=== PATIENT | female | born 1950 | race Caucasian/White ===

== ENCOUNTER 2021-08-06 17:30 | Inpatient (IN) | payer MEDICARE, BC ==
[~2021-08-06] VITALS: Ht 162.6 cm; Wt 79.9 kg
[2021-08-06] MEDS ORDERED: ALBUTEROL SULFATE 2.5 MG/3 ML NEBU NEB ONE (18:00)
[2021-08-06] MEDS ORDERED: methylPREDNISolone SOD SUCC 125 MG/2 ML VIAL IV ONE (18:00)
[2021-08-06] MEDS ORDERED: IPRATROPIUM BROMIDE 0.5 MG/2.5 ML NEBU NEB ONE (18:00)
--- NOTE | 2021-08-06 18:02 | NUR ---
Pt.was seen by pt.was updated with condition and plan of care.
[2021-08-06] MEDS ORDERED: methylPREDNISolone SOD SUCC 125 MG/2 ML VIAL ONE (18:29)
[2021-08-06 18:30] LABS: HEMATOCRIT 40.5 % (31.2-41.9); MEAN CORPUSCULAR HEMOGLOBIN 30.8 uug (24.7-32.8); MEAN CORPUSCULAR VOLUME 91.9 fL (75.5-95.3); PLATELET COUNT (AUTO) 190 K/uL (179-408)
[2021-08-06 18:37] LABS: CARBON DIOXIDE 29 mmol/L (21-32); CHLORIDE 102 mmol/L (98-107); GLUCOSE 116 mg/dL (74-106); POTASSIUM 3.7 mmol/L (3.5-5.1); UREA NITROGEN, BLOOD 19 mg/dL (7-18)
[2021-08-06 18:50] LABS: ALANINE AMINOTRANSFERASE 28 U/L (14-59); ALKALINE PHOSPHATASE 47 U/L (50-136); ASPARTATE AMINOTRANSFERASE 49 U/L (15-37); BILIRUBIN,DIRECT 0.1 mg/dL (0.0-0.2); BILIRUBIN,TOTAL 0.4 mg/dL (0.2-1.0); TOTAL PROTEIN, SERUM 8.2 g/dL (6.4-8.2)
[2021-08-06] MEDS ORDERED: ALBUTEROL SULFATE 2.5 MG/3 ML NEBU ONE (19:05)
[2021-08-06] MEDS ORDERED: IPRATROPIUM BROMIDE 0.5 MG/2.5 ML NEBU ONE (19:05)
[2021-08-06] MEDS ORDERED: VANCOMYCIN IV 1,000 MG in IV DEXTROSE 5% 250 ML IV ONE (19:15)
[2021-08-06] MEDS ORDERED: IV NORMAL SALINE 1000 ML BAG IV ONE (19:15)
[2021-08-06] MEDS ORDERED: CEFEPIME HCL 1 G in IV DEXTROSE 5% 50 ML IV ONE (19:15)
[2021-08-06] MEDS ORDERED: TRAZ-257 PO (19:24)
[2021-08-06] MEDS ORDERED: QUET50TA PO (19:24)
[2021-08-06] MEDS ORDERED: DEXT15DR6 EACHEYE (19:24)
[2021-08-06] MEDS ORDERED: PANT40TA49 PO (19:24)
[2021-08-06] MEDS ORDERED: LORA10TA7 PO (19:24)
[2021-08-06] MEDS ORDERED: ATOR40TA PO (19:24)
[2021-08-06] MEDS ORDERED: ACET-2605 PO (19:24)
[2021-08-06] MEDS ORDERED: MAGN400O6 PO (19:24)
[2021-08-06] MEDS ORDERED: FLUV100T3 PO (19:24)
[2021-08-06] MEDS ORDERED: ZOLP5TAB8 PO (19:24)
[2021-08-06] MEDS ORDERED: RISP0.5T65 PO (19:24)
[2021-08-06] MEDS ORDERED: QUET200T PO (19:24)
[2021-08-06] MEDS ORDERED: MELA3TAB41 PO (19:24)
[2021-08-06] MEDS ORDERED: CYCL30DR EACHEYE (19:24)
[2021-08-06] MEDS ORDERED: TRAM50TA2 PO (19:24)
--- NOTE | 2021-08-06 19:37 | NUR ---
covid swab performed.
[2021-08-06] MEDS ORDERED: ACETAMINOPHEN 650 MG SUPP.RECT RC ONE (19:45)
--- NOTE | 2021-08-06 20:02 | NUR ---
Dr. Parry spoke with Dr. Howell and admission orders received.
[2021-08-06] MEDS ORDERED: VANCOMYCIN IV 200 ML ONE (20:12)
[2021-08-06] MEDS ORDERED: CEFEPIME HCL 1 G VIAL ONE (20:12)
--- NOTE | 2021-08-06 20:25 | NUR ---
pt spo2 was noted to be 78 percent on [address] Nelson and placed pt on 15 liters NRBM. saturation is now 96 percent.
--- NOTE | 2021-08-06 20:27 | NUR ---
call to RT for abg.
[2021-08-06 20:48] LABS: ABG BASE EXCESS 1.5 mmol/L; ABG HCO3 26.8 mmol/L; ABG PCO2 44.6 mmHg (35.0-45.0); ABG PH 7.397 (7.350-7.450); ABG PO2 307.5 mmHg (75.0-100.0); ABG SITE LEFT RADIAL; ABG TOTAL HEMOGLOBIN 14.9 G/dL (12.0-16.0); COHb 1.2 % (0.5-1.5); MetHb 0.1 % (0.0-1.5); O2Hb 98.4 % (94.0-97.0)
[2021-08-06] MEDS ORDERED: HALOPERIDOL LACTATE 5 MG/1 ML VIAL IV PRN (22:15)
[2021-08-06] MEDS ORDERED: MORPHINE SULFATE 2 MG/1 ML DISP.SYRIN IV PRN (22:15)
[2021-08-06] MEDS ORDERED: ONDANSETRON 4 MG/2 ML VIAL IV PRN (22:15)
[2021-08-06] MEDS ORDERED: MAGNESIUM HYDROXIDE 30 ML LIQUID UDC PO PRN (22:15)
[2021-08-06] MEDS ORDERED: ACETAMINOPHEN 325 MG TABLET PO PRN (22:15)
--- NOTE | 2021-08-06 23:11 | NUR ---
report given to Elham PACE pt to go to room 323.
[2021-08-06 23:45] VITALS: BP 115/48
--- NOTE | 2021-08-06 23:45 | NUR ---
Admitted a 71 years old female with Dx of Pneumonia and Sepsis. Patient AAOx2-3 but forgetful. On O2 at 5LPM via NC in place. O2 sat at 95%. Patient using accessory muscle to breath. Frequent cough noted, but non-productive. PUI precaution observed. NSR with PAC's on tele with HR of 77/min. IV site on right hand and left hand intact and patent. Routine admission care done. Plan of care initiated. Safety measure initiated and call light within reached. Continue to monitor.
--- NOTE | 2021-08-06 23:52 | NUR ---
[facility] Sofia Lizarraga at bedside to receive the pt.
--- NOTE | 2021-08-07 00:30 | NUR ---
Administer additional 400ml of 0.9% Saline to total 2400ml of Saline from ER.
--- NOTE | 2021-08-07 00:47 | NUR ---
Patient continue to cough frequently. Dr. Packer notified with order to start patient on Robitussin DM 10ml every 4 hours PRN for cough. Order noted and will carry out.
[2021-08-07] MEDS: GUAIFENESIN/DEXTROMETHORPHAN 5 ML UDC PO PRN ×4 (01:38→20:56)
[2021-08-07] MEDS ORDERED: CEFEPIME HCL 1 G VIAL ONE ×2 (02:58→02:59)
--- NOTE | 2021-08-07 05:31 | NUR ---
Patient slept fairly during the night. Still with off and on non productive moist cough, but decreased in frequency after Robitussin DM 10ml PO provided. On O2 at 5LPM via NC in place. O2 sat at 98%. IV site on right hand and left hand intact and patent. No adverse reaction noted from IV antibiotic. Denies any SOB or pain at this time. PUI precaution observed. NSR with occasional PAC's on tele with HR of 60/min.
[2021-08-07] MEDS ORDERED: CEFEPIME HCL 1 G in IV DEXTROSE 5% 50 ML IV SCH (06:00)
[2021-08-07 07:03] LABS: HEMATOCRIT 37.5 % (31.2-41.9); MEAN CORPUSCULAR VOLUME 92.9 fL (75.5-95.3); PLATELET COUNT (AUTO) 165 K/uL (179-408)
[2021-08-07 07:31] LABS: BILIRUBIN,TOTAL 0.3 mg/dL (0.2-1.0); MAGNESIUM 2.1 mg/dL (1.8-2.4); TOTAL PROTEIN, SERUM 7.1 g/dL (6.4-8.2)
[2021-08-07 07:57] LABS: THYROID STIMULATING HORMONE 1.888 mIU/mL (0.358-3.740)
[2021-08-07] MEDS: PANTOPRAZOLE SODIUM 40 MG TABLET.DR PO SCH (09:31)
[2021-08-07] MEDS: LORATADINE 10 MG TABLET PO SCH (09:31)
[2021-08-07] MEDS: QUETIAPINE FUMARATE 25 MG TABLET PO SCH ×2 (09:31→16:33)
[2021-08-07] MEDS: risperiDONE 0.5 MG TABLET PO SCH ×2 (09:31→16:33)
--- NOTE | 2021-08-07 10:00 | NUR ---
Attempted to taper o2to 4/lit but pt desat to 87% put pt back to 5lit via n/c with sat of 93%.
[2021-08-07 11:44] VITALS: BP 116/56
[2021-08-07] MEDS: VANCOMYCIN IV 1,250 MG in IV DEXTROSE 5% 250 ML IV SCH (12:40)
[2021-08-07 16:00] VITALS: BP 120/54
[2021-08-07] MEDS: CEFEPIME HCL 1 G in IV DEXTROSE 5% 50 ML IV SCH (16:40)
[2021-08-07] MEDS ORDERED: FLUVOXAMINE MALEATE 50 MG TABLET PO SCH (18:00)
--- NOTE | 2021-08-07 18:00 | NUR ---
Pt coughing throughout shift managed with Bowen MCKEON.
[2021-08-07 20:00] VITALS: BP 120/46
[2021-08-07] MEDS: TRAZODONE 100 MG TABLET PO SCH (20:55)
[2021-08-07] MEDS: ATORVASTATIN 40 MG TABLET PO SCH (20:55)
[2021-08-07] MEDS: DOCUSATE SODIUM 100 MG CAPSULE PO SCH (20:55)
[2021-08-08 00:48] VITALS: BP 130/53
--- NOTE | 2021-08-08 00:54 | NUR ---
Awake upon initial rounds. AAOx2-3 Contact isolation maintained. (+) PUI. Coughing most of the shift. Robitussin given as needed. Well managed by Robitussin. Fall precautions maintained. Siderails up for safety. Tolerated po meds well. O2 @ 5L via nasal cannula, pulse ox 98% Incontinent of bowel and bladder. Incontinent of bowel and bladder. No BM noted. On telemetry, patient on sinus rythm HR 80's. Will monitor patient.
[2021-08-08 01:27] VITALS: BP 128/63
[2021-08-08] MEDS: CEFEPIME HCL 1 G in IV DEXTROSE 5% 50 ML IV SCH ×2 (04:47→16:50)
[2021-08-08] MEDS: GUAIFENESIN/DEXTROMETHORPHAN 5 ML UDC PO PRN ×2 (04:49→13:14)
[2021-08-08 05:34] VITALS: BP 121/51
[2021-08-08] MEDS: VANCOMYCIN IV 1,250 MG in IV DEXTROSE 5% 250 ML IV SCH (06:03)
--- NOTE | 2021-08-08 06:45 | NUR ---
Slept well throughout the night. Denies any pain nor any discomfort. VSS. IV ABT's given as ordered. Tolerated well. No side effects noted. Will monitor patient. Incontinent of urine. Kept clean and dry. No BM this shift.
[2021-08-08] MEDS: PANTOPRAZOLE SODIUM 40 MG TABLET.DR PO SCH (09:00)
[2021-08-08] MEDS: LORATADINE 10 MG TABLET PO SCH (09:00)
[2021-08-08] MEDS: risperiDONE 0.5 MG TABLET PO SCH ×2 (09:00→16:50)
[2021-08-08] MEDS: QUETIAPINE FUMARATE 25 MG TABLET PO SCH ×2 (09:00→16:50)
[2021-08-08 11:33] VITALS: BP 126/51
[2021-08-08 15:53] VITALS: BP 120/47
[2021-08-08] MEDS: FLUVOXAMINE MALEATE 50 MG TABLET PO SCH (16:50)
--- NOTE | 2021-08-08 18:49 | NUR ---
Patient remains awake, alert, not in any form of distress. She denies any pain or discomfort. Titrated oxygen to 3LPM via nasal cannula and patient tolerated with O2 sat range of 93-96%. She was noted with coughing episodes, non-productive, given PRN Robitussin PO as ordered and patient stated with relief. Assisted with her meals. Turned and repositioned. Needs attended to promptly. Call light and frequently used items placed within reach.
[2021-08-08 20:00] VITALS: BP 121/41
[2021-08-08] MEDS: DOCUSATE SODIUM 100 MG CAPSULE PO SCH (20:15)
[2021-08-08] MEDS: ATORVASTATIN 40 MG TABLET PO SCH (20:16)
[2021-08-08] MEDS: TRAZODONE 100 MG TABLET PO SCH (20:16)
[2021-08-09 00:09] VITALS: BP 106/40
[2021-08-09 02:27] LABS: CREATININE 0.8 mg/dL (0.6-1.3); POTASSIUM 3.1 mmol/L (3.5-5.1); VANCOMYCIN,TROUGH 8.6 ug/mL (12.0-20.0)
[2021-08-09] MEDS: VANCOMYCIN IV 1,250 MG in IV DEXTROSE 5% 250 ML IV SCH (03:10)
[2021-08-09 04:00] VITALS: BP 120/51
[2021-08-09] MEDS: CEFEPIME HCL 1 G in IV DEXTROSE 5% 50 ML IV SCH (04:44)
--- NOTE | 2021-08-09 06:32 | NUR ---
Patient slept well.No acute distress noted. O2 at 3LPM via nasal cannula saturating at 93%.Iv infiltrated on both hands.Inserted new Iv line on right FA 22g with good blood return.Infused IV ATB as ordered. Incontinent .Pericare rendered. Turned and repositioned. Call light and frequently used items placed within reach.Will endorse to oncoming shift.
[2021-08-09 07:26] LABS: HEMATOCRIT 36.3 % (31.2-41.9); MEAN CORPUSCULAR HEMOGLOBIN 30.8 uug (24.7-32.8); MEAN CORPUSCULAR VOLUME 91.6 fL (75.5-95.3); PLATELET COUNT (AUTO) 143 K/uL (179-408)
--- NOTE | 2021-08-09 07:30 | NUR ---
Awake, alert, on moderate high back rest. O2 at 3L/NC, not in distress
[2021-08-09 07:34] LABS: CREATININE 0.7 mg/dL (0.6-1.3); MAGNESIUM 2.1 mg/dL (1.8-2.4); PHOSPHOROUS 3.1 mg/dL (2.5-4.9); POTASSIUM 3.3 mmol/L (3.5-5.1)
[2021-08-09] MEDS ORDERED: POTASSIUM CHLORIDE 20 MEQ POWDER PACKET PO ONE (09:15)
[2021-08-09] MEDS: PANTOPRAZOLE SODIUM 40 MG TABLET.DR PO SCH (09:44)
[2021-08-09] MEDS: risperiDONE 0.5 MG TABLET PO SCH ×2 (09:44→17:13)
[2021-08-09] MEDS: LORATADINE 10 MG TABLET PO SCH (09:44)
[2021-08-09] MEDS: QUETIAPINE FUMARATE 25 MG TABLET PO SCH ×2 (09:44→17:13)
[2021-08-09 11:38] VITALS: BP 100/42
[2021-08-09] MEDS ORDERED: CEFEPIME HCL 1 G in IV DEXTROSE 5% 50 ML IV SCH (14:00)
[2021-08-09 15:13] VITALS: BP 103/45
[2021-08-09] MEDS ORDERED: AMOX-427 PO (16:43)
[2021-08-09] MEDS ORDERED: DOXY-326 PO (16:43)
[2021-08-09] MEDS: FLUVOXAMINE MALEATE 50 MG TABLET PO SCH (17:13)
[2021-08-09] MEDS ORDERED: VANCOMYCIN IV 1,250 MG in IV DEXTROSE 5% 250 ML IV SCH (18:00)
--- NOTE | 2021-08-09 18:30 | NUR ---
With discharge order to SNF, facilitated to [facility]. Report given to Batsheva. Saline lock removed. DC instruction. printed. Discharged per gurney/ambulance in fair condition, with O2 at 3L/NC, not in distress, afebrile.
== END 2021-08-09 18:30 | DRG 871 ==
LOC: ER 17:34 → EDBD 17:34 → TELE3 23:17
PROVIDERS: ADMIT Internal Medicine; ATTEND Nurse Practitioner Acute Care
DX: A41.9 Sepsis, unspecified organism (principal); J69.0 Pneumonitis due to inhalation of food and vomit; J96.01 Acute respiratory failure with hypoxia; G92.8 Other toxic encephalopathy; N39.0 Urinary tract infection, site not specified; I69.354 Hemiplegia and hemiparesis following cerebral infarction affecting left non-dominant side; D68.59 Other primary thrombophilia; Z20.822 Contact with and (suspected) exposure to COVID-19; F01.50 Vascular dementia, unspecified severity, without behavioral disturbance, psychotic disturbance, mood disturbance, and anxiety; E78.5 Hyperlipidemia, unspecified; E66.9 Obesity, unspecified; Z68.30 Body mass index [BMI] 30.0-30.9, adult; K21.9 Gastro-esophageal reflux disease without esophagitis
CPT/HCPCS: 36415; 36600; 71045; 83605; 83735; 84100; 84443; 84484; 85025; 87040; 93005; 97161; G0378; J0692; J2930; J3370; J3590; J7040; J7050; U0003